=== PATIENT | male | born 1940 | race Caucasian/White ===

== ENCOUNTER 2022-07-15 15:34 | Observation (INO) | payer MEDICARE ==
[2022-07-15] MEDS ORDERED: IPRATROPIUM-ALBUTEROL 3 ML NEB INHALATION STA (16:24)
[2022-07-15] MEDS ORDERED: SODIUM CHLORIDE 0.9% 1,000 ML IV STA (16:24)
[2022-07-15] MEDS ORDERED: methylPREDNISolone SOD SUCCI 125 MG/2 ML VIAL IV STA (16:24)
[2022-07-15] MEDS ORDERED: ASPIRIN 81 MG PO STA (16:29)
[2022-07-15 16:55] LABS: Anisocytosis Slight; HGB 7.3 gm/dL (13.0-17.5); Hyperchromasia Marked; Hypochromasia Slight; MCH 32.6 pg (25.0-35.0); MCHC 37.2 g/dL (31.0-37.0); MCV 87.5 fL (80.0-100.0); Mean Platelet Volume 10.3; Platelet Count 152 k/uL (150-450); Poikilocytosis Marked; RBC 2.24 m/uL (4.30-5.90); RDW 19.8 % (11.5-15.5); WBC 4.5 k/uL (3.8-10.6)
[2022-07-15 17:06] LABS: HCT 19.6 % (39.0-53.0); Partial Thromboplastin Time 27.6 sec (22.0-30.0); Prothrombin Time 11.2 sec (9.0-12.0)
[2022-07-15 17:11] LABS: Calcium 8.5 mg/dL (8.4-10.2); Magnesium 2.3 mg/dL (1.6-2.3); Potassium 4.1 mmol/L (3.5-5.1); Total Bilirubin 5.7 mg/dL (0.2-1.3); Total Protein 6.9 g/dL (6.3-8.2)
[2022-07-15 17:29] LABS: Band Neutrophils % 6 %; Basophils # (M) 0.09 k/uL (0-0.2); Eosinophils # (M) 0.05 k/uL (0-0.7); Lymphocytes # (M) 1.04 k/uL (1.0-4.8); Monocytes # (M) 0.14 k/uL (0-1.0); Neutrophils % (M) 65 %; Nucleated Red Blood Cells 0 /100 WBC (0-0); Total Cells Counted 100
[2022-07-15 17:30] LABS: Large Platelets Present; Polychromasia Present
--- NOTE | 2022-07-15 17:39 | XR ---
EXAMINATION TYPE: XR chest 2V DATE OF EXAM: 07/15/2022 COMPARISON: NONE HISTORY: Short of breath TECHNIQUE: 3 views FINDINGS: Heart is normal. Lungs are clear of infiltrate. No heart failure. There is some coarsening of interstitial markings in the lower lung jiménez. There are chest leads. Bony thorax is intact. IMPRESSION: No active cardiopulmonary disease. Normal heart
--- NOTE | 2022-07-15 18:59 | CT ---
EXAMINATION TYPE: CT chest angio for PE DATE OF EXAM: 07/15/2022 COMPARISON: None HISTORY: elevated dimer, BROCK CT DLP: 276.1 mGycm Automated exposure control for dose reduction was used. CONTRAST: Performed with IV Contrast, patient injected with 80ML mL of Isovue 370. Images obtained from the thoracic inlet to the diaphragm with the IV contrast. There are Three-D post processed images. There is diffuse pulmonary emphysema. There is some mild reticular interstitial infiltrate throughout both lungs. Heart size is normal. No pericardial effusion. There are no hilar masses. There is no me diastinal adenopathy. Thoracic aorta shows mild atheromatous changes. No aneurysm or dissection. No evidence of filling defect in the pulmonary arteries. The thoracic spine is intact. No compression fracture. Sternum is intact. The upper abdominal soft ti ssues are intact. There are calcified gallstones. IMPRESSION: No evidence of pulmonary embolism. Emphysema and pulmonary interstitial fibrosis. Cholelithiasis. Splenomegaly. Spleen measures 15 cm.
[2022-07-15] MEDS ORDERED: IPRATROPIUM-ALBUTEROL 3 ML NEB INHALATION PRN (19:04)
[2022-07-15] MEDS ORDERED: NALOXONE 0.4 MG/ML 1 ML VIAL IV PRN (19:30)
--- NOTE | 2022-07-15 19:30 | ED ---
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 States he has noticed it worse over the last 4 days or so. Wanted to be evaluated. Denies any chest pain, history of blood clots. Denies any abdominal pain, nausea, vomiting. Denies any worsening weakness. States he does get exertional shortness of breath. States he quit smoking tobacco 5 days ago. Presents for further evaluation at this time. Denies any lower extremity edema. Denies any recent long distance travel. Is not on blood thinners. Does not take any medications at home. Denies alcohol use. Presents for further evaluation of this time.he also endorses one or 2 episodes of diarrhea. Nonbloody. Light brown in color. - Related Data Home Medications Medication Instructions Recorded Confirmed No Known Home Medications 07/15/22 07/15/22 Allergies Allergy/AdvReac Type Severity Reaction Status Date / Time Penicillins Allergy Rash/Hives Verified 07/15/22 18:14 Review of Systems ROS Statement: Those systems with pertinent positive or pertinent negative responses have been documented in the HPI. Review of Systems: CONST: Denies fever EYES: Denies blurry vision ENT: Denies nasal congestion C/V: Denies Chest pain RESP: Endorses shortness of breath. GI: Denies abdominal pain : Denies dysuria SKIN: Denies rash. MSK: Denies joint pain. NEURO: Denies headache ROS Other: All systems not noted in ROS Statement are negative. Past Medical History Past Medical History: No Reported History History of Any Multi-Drug Resistant Organisms: Unobtainable Past Surgical History: No Surgical Hx Reported Past Psychological History: No Psychological Hx Reported Smoking Status: Former smoker Past Alcohol Use History: Unable to Obtain Past Drug Use History: Unable to Obtain General Exam - General Exam Comments Initial Comments: General: Appears in no acute distress. HEAD: Normal with no signs of head trauma. EYES: PERRLA, EOMI, conjunctiva normal, no discharge. ENT: Hearing grossly intact, normal oropharynx. RESPIRATORY: Bilateral end expiratory wheezing. No increased work of breathing. Mild hypoxia on room air. C/V: Regular rate and rhythm. S1 and S2 auscultated, no edema, peripheral pulses 2+ and intact throughout ABD: Abd is soft, nontender, nondistended EXT: Normal range of motion, no obvious deformity SKIN: No rashes or lesions observed on exposed skin. NEURO: Alert and oriented 4. No focal deficits. Limitations: no limitations Course Vital Signs 07/15/22 07/15/22 07/15/22 15:42 17:41 17:53 Temperature 99.2 F Pulse Rate 93 82 84 Respiratory 22 Rate Blood Pressure 158/64 O2 Sat by Pulse 96 Oximetry 07/15/22 19:15 Temperature 98.8 F Pulse Rate 82 Respiratory 16 Rate Blood Pressure 141/59 O2 Sat by Pulse 89 L Oximetry Medical Decision Making - Medical Decision Making Based on the patient's presentation and physical exam, I'm concerned for possib le cardiopulmonary etiology for his current symptoms. I did recommend that we obtain cardiac labs. Screening d-dimer will be obtained. He was in agreement this plan. It appears he is having a COPD exacerbation will be given IV steroids as well as duonebs. He was in agreement this plan. Vital signs are within acceptable limits except for mild hypoxia. EKG shows no signs of acute ischemia. Chest x-ray as interpreted by myself reveals no evidence of infiltrate, acute bony trauma to process, pneumothorax. No acute cardiopulmonary process. Laboratory studies are remarkable for an anemia with hemoglobin of 7.3. I did discuss this with the patient and he states he is chronically anemic. D-dimer is elevated to 3.13. Troponin is indeterminate. Patient does have a chronically elevated total bilirubin according to the patient. Covid influenza negative. Liver function is within acceptable limits. I did update the patient. Because he has the elevated d-dimer I did want to obtain a CT PE. He was in agreement this plan. CT PE is interpreted by myself reveals no evidence of acute pulmonary embolism. No infiltrate. No bony traumatic process. Radiology did read it as showing emphysematous changes which does fit his current picture of COPD exacerbation. On reevaluation, patient is feeling somewhat improved following breathing treatment. I would like to admit him for further breathing treatments as he is requiring low levels of nasal cannula oxygen. He was in agreement this plan. We'll continue IV steroids as well as breathing treatments. I spoke with the admitting physician, Dr. Joyce who accepted the patient. Patient was admitted in stable condition for COPD exacerbation. - Lab Data Result diagrams: 07/15/22 16:36 07/15/22 16:36 Lab Results 07/15/22 07/15/22 07/15/22 Range/Units 16:36 16:36 16:36 WBC 4.5 (3.8-10.6) k/uL RBC 2.24 L (4.30-5.90) m/uL Hgb 7.3 L (13.0-17.5) gm/dL Hct 19.6 L* (39.0-53.0) % MCV 87.5 (80.0-100.0) fL MCH 32.6 (25.0-35.0) pg MCHC 37.2 H (31.0-37.0) g/dL RDW 19.8 H (11.5-15.5) % Plt Count 152 (150-450) k/uL MPV 10.3 Neutrophils % (Manual) 65 % Band Neuts % (Manual) 6 % Lymphocytes % (Manual) 23 % Monocytes % (Manual) 3 % Eosinophils % (Manual) 1 % Basophils % (Manual) 2 % Neutrophils # (Manual) 3.10 (1.3-7.7) k/uL Lymphocytes # (Manual) 1.04 (1.0-4.8) k/uL Monocytes # (Manual) 0.14 (0-1.0) k/uL Eosinophils # (Manual) 0.05 (0-0.7) k/uL Basophils # (Manual) 0.09 (0-0.2) k/uL Nucleated RBCs 0 (0-0) /100 WBC Manual Slide Review Performed Large Platelets Present Polychromasia Present Hypochromasia Slight Hyperchromasia Marked Poikilocytosis Marked Anisocytosis Slight PT 11.2 (9.0-12.0) sec INR 1.0 (<1.2) APTT 27.6 (22.0-30.0) sec D-Dimer (<0.60) mg/L FEU Sodium 134 L (137-145) mmol/L Potassium 4.1 (3.5-5.1) mmol/L Chloride 104 (98-107) mmol/L Carbon Dioxide 24 (22-30) mmol/L Anion Gap 6 mmol/L BUN 25 H (9-20) mg/dL Creatinine 1.10 (0.66-1.25) mg/dL Est GFR (CKD-EPI)AfAm 74 (>60 ml/min/1.73 sqM) Est GFR (CKD-EPI)NonAf 64 (>60 ml/min/1.73 sqM) Glucose 101 H (74-99) mg/dL Calcium 8.5 (8.4-10.2) mg/dL Magnesium 2.3 (1.6-2.3) mg/dL Total Bilirubin 5.7 H (0.2-1.3) mg/dL AST 34 (17-59) U/L ALT 23 (4-49) U/L Alkaline Phosphatase 83 (38-126) U/L Troponin I (0.000-0.034) ng/mL Total Protein 6.9 (6.3-8.2) g/dL Albumin 4.0 (3.5-5.0) g/dL Coronavirus (PCR) (Not Detectd) Influenza Type A RNA (Not Detectd) Influenza Type B (PCR) (Not Detectd) 07/15/22 07/15/22 07/15/22 Range/Units 16:36 16:36 16:36 WBC (3.8-10.6) k/uL RBC (4.30-5.90) m/uL Hgb (13.0-17.5) gm/dL Hct (39.0-53.0) % MCV (80.0-100.0) fL MCH (25.0-35.0) pg MCHC (31.0-37.0) g/dL RDW (11.5-15.5) % Plt Count (150-450) k/uL MPV Neutrophils % (Manual) % Band Neuts % (Manual) % Lymphocytes % (Manual) % Monocytes % (Manual) % Eosinophils % (Manual) % Basophils % (Manual) % Neutrophils # (Manual) (1.3-7.7) k/uL Lymphocytes # (Manual) (1.0-4.8) k/uL Monocytes # (Manual) (0-1.0) k/uL Eosinophils # (Manual) (0-0.7) k/uL Basophils # (Manual) (0-0.2) k/uL Nucleated RBCs (0-0) /100 WBC Manual Slide Review Large Platelets Polychromasia Hypochromasia Hyperchromasia Poikilocytosis Anisocytosis PT (9.0-12.0) sec INR (<1.2) APTT (22.0-30.0) sec D-Dimer (<0.60) mg/L FEU Sodium (137-145) mmol/L Potassium (3.5-5.1) mmol/L Chloride (98-107) mmol/L Carbon Dioxide (22-30) mmol/L Anion Gap mmol/L BUN (9-20) mg/dL Creatinine (0.66-1.25) mg/dL Est GFR (CKD-EPI)AfAm (>60 ml/min/1.73 sqM) Est GFR (CKD-EPI)NonAf (>60 ml/min/1.73 sqM) Glucose (74-99) mg/dL Calcium (8.4-10.2) mg/dL Magnesium (1.6-2.3) mg/dL Total Bilirubin (0.2-1.3) mg/dL AST (17-59) U/L ALT (4-49) U/L Alkaline Phosphatase (38-126) U/L Troponin I 0.018 (0.000-0.034) ng/mL Total Protein (6.3-8.2) g/dL Albumin (3.5-5.0) g/dL Coronavirus (PCR) Not Detected (Not Detectd) Influenza Type A RNA Not Detected (Not Detectd) Influenza Type B (PCR) Not Detected (Not Detectd) 07/15/22 Range/Units 16:36 WBC (3.8-10.6) k/uL RBC (4.30-5.90) m/uL Hgb (13.0-17.5) gm/dL Hct (39.0-53.0) % MCV (80.0-100.0) fL MCH (25.0-35.0) pg MCHC (31.0-37.0) g/dL RDW (11.5-15.5) % Plt Count (150-450) k/uL MPV Neutrophils % (Manual) % Band Neuts % (Manual) % Lymphocytes % (Manual) % Monocytes % (Manual) % Eosinophils % (Manual) % Basophils % (Manual) % Neutrophils # (Manual) (1.3-7.7) k/uL Lymphocytes # (Manual) (1.0-4.8) k/uL Monocytes # (Manual) (0-1.0) k/uL Eosinophils # (Manual) (0-0.7) k/uL Basophils # (Manual) (0-0.2) k/uL Nucleated RBCs (0-0) /100 WBC Manual Slide Review Large Platelets Polychromasia Hypochromasia Hyperchromasia Poikilocytosis Anisocytosis PT (9.0-12.0) sec INR (<1.2) APTT (22.0-30.0) sec D-Dimer 3.13 H (<0.60) mg/L FEU Sodium (137-145) mmol/L Potassium (3.5-5.1) mmol/L Chloride (98-107) mmol/L Carbon Dioxide (22-30) mmol/L Anion Gap mmol/L BUN (9-20) mg/dL Creatinine (0.66-1.25) mg/dL Est GFR (CKD-EPI)AfAm (>60 ml/min/1.73 sqM) Est GFR (CKD-EPI)NonAf (>60 ml/min/1.73 sqM) Glucose (74-99) mg/dL Calcium (8.4-10.2) mg/dL Magnesium (1.6-2.3) mg/dL Total Bilirubin (0.2-1.3) mg/dL AST (17-59) U/L ALT (4-49) U/L Alkaline Phosphatase (38-126) U/L Troponin I (0.000-0.034) ng/mL Total Protein (6.3-8.2) g/dL Albumin (3.5-5.0) g/dL Coronavirus (PCR) (Not Detectd) Influenza Type A RNA (Not Detectd) Influenza Type B (PCR) (Not Detectd) - EKG Data -: EKG Interpreted by Me EKG Comments: 12-lead Electrocardiogram Interpretation Note EKG was reviewed and interpreted by myself. 12-lead ECG performed at 1649 is interpreted by me as revealing normal sinus rhythm at a rate of 84 beats per minute. [place] is normal. MT interval is 150 ms, QRS duration is 88 ms, QTc is 410 ms.. There were no ST or T wave abnormalities to suggest myocardial ischemia or injury. R wave progression across the precordium was satisfactory. By my interpretation this EKG is non-diagnostic for acute ischemia. No prior EKG for comparison. Disposition Clinical Impression: COPD exacerbation, Jaundice, Chronic anemia Disposition: ADMITTED IP TO THIS HOSP Condition: Stable Referrals: None,Stated [Primary Care Provider] - 1-2 days Time of Disposition: 19:20
[2022-07-15] MEDS: methylPREDNISolone SOD SUCCI 40 MG/ML 1 ML VIAL IV SCH (23:06)
--- NOTE | 2022-07-15 23:20 | P.HPIM ---
History of Present Illness H&P Date: 07/15/22 The patient is a 81-year-old male with a PMH of COPD, Gilbert's syndrome, chronic anemia, and tobacco abuse who presents to the emergency room with complaints of dyspnea on exertion. The patient reports that he has been unable to perform his ADLs due to worsening dyspnea over the past 3-4 days. Denies experiencing chest discomfort, lower extremity swelling, lower extremity pain. Reports a lifelong history of smoking several packs a day which he quit 5 days ago. Reports feeling somewhat better at the time of interview. Denies fever, chills, nausea, vomiting, abdominal pain. In the emergency room, the patient had an SpO2 of 89% on room air. Chest CTA was consistent with emphysema with pulmonary interstitial fibrosis as well as splenomegaly and cholelithiasis with no PE. EKG revealed sinus rhythm at [address]/T-wave changes noted as reviewed by me. Laboratory evaluation was remarkable for hemoglobin 7.3, and troponin 0.018. Review of systems: Pertinent positives and negatives as discussed in HPI, a complete review of systems was performed and all other systems are negative. Physical examination: General: non toxic, no distress, appears at stated age, thin Derm: no unusual rashes/lesions, warm Head: atraumatic, normocephalic, symmetric Eyes: EOMI, no lid lag, anicteric sclera, pupils equal round reactive to light ENT: Nose and ears atraumatic Neck: No cervical lymphadenopathy, trachea midline, supple Mouth: no lip lesion, mucus membranes moist Cardiovascular: S1S2 reg, no murmur, positive dorsalis pedis pulse bilateral, no edema Lungs: Increased AP diameter, poor air entry bilaterally, no rhonchi or rales appreciated, no accessory muscle use Abdominal: soft, nontender to palpation, no guarding Ext: muscle strength 5 out of 5 in all 4 extremities grossly, no gross muscle atrophy, no contractures, Neuro: CN II-XI grossly intact, no gross focal neuro deficits Psych: Alert, oriented, appropriate affect Assessment/plan Acute COPD exacerbation -Solu-Medrol, Jordan's -Pulmonary consult -Supplemental oxygen -Strongly advised patient on importance of tobacco cessation Normocytic anemia, unknown baseline -Patient reports that he has been told over the past several years that he has anemia -Denies seeing a director enterprise systems for this -Obtain basic anemia workup DVT prophylaxis -Heparin subcu The patient is admitted with an anticipated less than 2 midnight stay for evaluation of COPD CODE STATUS: Full Code Discussed with: Patient Anticipated discharge date: in am Anticipated discharge place: Home Past Medical History Past Medical History: No Reported History History of Any Multi-Drug Resistant Organisms: Unobtainable Past Surgical History: No Surgical Hx Reported Past Psychological History: No Psychological Hx Reported Smoking Status: Former smoker Past Alcohol Use History: Unable to Obtain Past Drug Use History: Unable to Obtain - Past Family History Father Family Medical History: COPD Medications and Allergies Home Medications Medication Instructions Recorded Confirmed Type No Known Home Medications 07/15/22 07/15/22 History Allergies Allergy/AdvReac Type Severity Reaction Status Date / Time Penicillins Allergy Rash/Hives Verified 07/15/22 18:14 Physical Exam Vitals: Vital Signs Temp Pulse Resp BP Pulse Ox 07/15/22 20:00 98.6 F 85 16 143/114 91 L 07/15/22 19:15 98.8 F 82 16 141/59 89 L 07/15/22 17:53 84 07/15/22 17:41 82 07/15/22 15:42 99.2 F 93 22 158/64 96 Intake and Output 07/15/22 07/15/22 07/15/22 06:59 14:59 22:59 Other: Weight 56.699 kg Results CBC & Chem 7: 07/15/22 16:36 07/15/22 16:36 Labs: Abnormal Lab Results - Last 24 Hours (Table) 07/15/22 07/15/22 07/15/22 Range/Units 16:36 16:36 16:36 RBC 2.24 L (4.30-5.90) m/uL Hgb 7.3 L (13.0-17.5) gm/dL Hct 19.6 L* (39.0-53.0) % MCHC 37.2 H (31.0-37.0) g/dL RDW 19.8 H (11.5-15.5) % D-Dimer 3.13 H (<0.60) mg/L FEU Sodium 134 L (137-145) mmol/L BUN 25 H (9-20) mg/dL Glucose 101 H (74-99) mg/dL Total Bilirubin 5.7 H (0.2-1.3) mg/dL
[2022-07-16 00:26] LABS: Glucose,Whole Blood 170 mg/dL (70-110)
[2022-07-16] MEDS: HEPARIN SODIUM,PORCINE/PF 5,000 UNIT/0.5 ML SYRINGE SQ SCH ×3 (06:12→16:00)
[2022-07-16] MEDS: IPRATROPIUM-ALBUTEROL 3 ML NEB INHALATION SCH ×4 (07:36→20:04)
[2022-07-16] MEDS: methylPREDNISolone SOD SUCCI 40 MG/ML 1 ML VIAL IV SCH ×2 (08:35→20:38)
[2022-07-16 12:58] LABS: % Iron Saturation 50.45 (15.00-50.00)
[2022-07-16 13:06] LABS: African American GFR (CKD) 93.8 (60.0-200.0); Anion Gap 9.5 mmol/L (10.00-18.00); BUN/Creat Ratio 30.89 Ratio (12.00-20.00); Blood Urea Nitrogen 27.8 mg/dL (9.0-27.0); Calcium 8.5 mg/dL (8.7-10.3); Carbon Dioxide 22.5 mmol/L (20.0-27.5); Non-African American GFR(CKD) 80.9 (60.0-200.0); Potassium 4.6 mmol/L (3.5-5.5)
--- NOTE | 2022-07-16 13:49 | P.PN ---
Subjective Progress Note Date: 07/16/22 The patient is a 81-year-old male with COPD, Gilbert's syndrome, chronic anemia, and tobacco abuse who presented to the emergency room with complaints of dyspnea on exertion. In the emergency room, the patient had an SpO2 of 89% on room air. Chest CTA was consistent with emphysema with pulmonary interstitial fibrosis as well as splenomegaly and cholelithiasis with no PE. EKG revealed sinus rhythm at [address]/T-wave changes noted as reviewed by me. Laboratory evaluation was remarkable for hemoglobin 7.3, and troponin 0.018. He was started on bronchodilators and steroids. He was placed in observation for further monitoring. On the morning following admission to his breathing had improved significantly. However his home O2 testing revealed an SpO2 of 86% with ambulation. Patient seen and examined at bedside. His breathing is significantly improved. He reports a lifelong history of anemia. I discussed with him that he should follow closely with his outpatient physician for this. He is in agreement. He states is mostly on bronchodilators and antihypertensive medications that he has not been following up on a regular basis. He also states that his bronchodilators were too expensive to afford. General: nontoxic, no distress, appears at stated age, poor dentition Derm: warm, dry Head: atraumatic, normocephalic, symmetric Eyes: EOMI, no lid lag, anicteric sclera Mouth: no lip lesion, mucus membranes moist Cardiovascular: S1S2 reg, no murmur, positive posterior tibial pulse bilateral, Lungs: Decreased breath sounds bilateral, no rhonchi, no rales , no accessory muscle use Abdominal: soft, nontender to palpation, no guarding, no appreciable organomegaly Ext: no gross muscle atrophy, no edema, no contractures Neuro: CN II-XI grossly intact, no focal neuro deficits Psych: Alert, oriented, appropriate affect Assessment/plan: Acute exacerbation of COPD Acute hypoxic respiratory failure -Bronchodilators, steroids -Pulmonary hygiene Tobacco dependency -Cessation -Nicotine replacement Anemia of chronic disease -Patient reports a history of this lifelong. He denies any blood in his stool, blood in his urine, coughing up blood coming bloody noses -Await folic acid -Needs close outpatient follow-up Likely home in AM once home O2 can be arranged Objective - Vital Signs Vital signs: Vital Signs Temp 97.5 F L 07/16/22 07:00 Pulse 92 07/16/22 07:52 Resp 18 07/16/22 08:00 BP 149/72 07/16/22 07:00 Pulse Ox 100 07/16/22 07:00 FiO2 Intake & Output 07/15/22 07/16/22 07/16/22 18:59 06:59 18:59 Intake Total 118 Balance 118 Weight 56.699 kg 56.699 kg Intake: Oral 118 Other: Voiding Method Toilet # Voids 2 - Labs CBC & Chem 7: 07/15/22 16:36 07/16/22 07:10 Labs: Abnormal Lab Results - Last 24 Hours (Table) 07/15/22 07/15/22 07/15/22 Range/Units 16:36 16:36 16:36 RBC 2.24 L (4.30-5.90) m/uL Hgb 7.3 L (13.0-17.5) gm/dL Hct 19.6 L* (39.0-53.0) % MCHC 37.2 H (31.0-37.0) g/dL RDW 19.8 H (11.5-15.5) % D-Dimer 3.13 H (<0.60) mg/L FEU Sodium 134 L (137-145) mmol/L Anion Gap (10.00-18.00) mmol/L BUN 25 H (9-20) mg/dL BUN/Creatinine Ratio (12.00-20.00) Ratio Glucose 101 H (74-99) mg/dL POC Glucose (mg/dL) (70-110) mg/dL Calcium (8.7-10.3) mg/dL TIBC (228-460) ug/dL % Saturation (15.00-50.00) Transferrin (204.0-354.0) mg/dL Ferritin (22.0-322.0) ng/mL Total Bilirubin 5.7 H (0.2-1.3) mg/dL 07/16/22 07/16/22 Range/Units 00:25 07:10 RBC (4.30-5.90) m/uL Hgb (13.0-17.5) gm/dL Hct (39.0-53.0) % MCHC (31.0-37.0) g/dL RDW (11.5-15.5) % D-Dimer (<0.60) mg/L FEU Sodium (137-145) mmol/L Anion Gap 9.50 L (10.00-18.00) mmol/L BUN 27.8 H (9-20) mg/dL BUN/Creatinine Ratio 30.89 H (12.00-20.00) Ratio Glucose 152 H (74-99) mg/dL POC Glucose (mg/dL) 170 H (70-110) mg/dL Calcium 8.5 L (8.7-10.3) mg/dL TIBC 176 L (228-460) ug/dL % Saturation 50.45 H (15.00-50.00) Transferrin 126.0 L (204.0-354.0) mg/dL Ferritin 836.0 H (22.0-322.0) ng/mL Total Bilirubin (0.2-1.3) mg/dL
[2022-07-16 20:05] LABS: Anisocytosis Moderate; HCT 22.3 % (39.0-53.0); HGB 7.2 gm/dL (13.0-17.5); Hyperchromasia Slight; Hypochromasia Marked; MCHC 32.5 g/dL (31.0-37.0); MCV 92.3 fL (80.0-100.0); Macrocytosis Slight; Mean Platelet Volume 10.6; Platelet Count 178 k/uL (150-450); Poikilocytosis Marked; RBC 2.41 m/uL (4.30-5.90); RDW 21.1 % (11.5-15.5)
[2022-07-16 20:52] LABS: Band Neutrophils % 10 %; Lymphocytes # (M) 0.85 k/uL (1.0-4.8); Metamyelocytes # (M) 0.04 k/uL (0); Metamyelocytes % 1 %; Monocytes # (M) 0.19 k/uL (0-1.0); Neutrophils % (M) 63 %; Nucleated Red Blood Cells 2 /100 WBC (0-0); Total Cells Counted 200; WBC 3.7 k/uL (3.8-10.6)
[2022-07-16 20:53] LABS: Polychromasia Present
[2022-07-16 20:59] LABS: Large Platelets Present
[2022-07-17] MEDS: HEPARIN SODIUM,PORCINE/PF 5,000 UNIT/0.5 ML SYRINGE SQ SCH ×2 (00:09→08:53)
[2022-07-17 03:14] VITALS: TEMP 97.7
[2022-07-17] MEDS: IPRATROPIUM-ALBUTEROL 3 ML NEB INHALATION SCH ×2 (07:22→10:51)
[2022-07-17 07:31] VITALS: BP 134/71; RESP 17
[2022-07-17] MEDS: methylPREDNISolone SOD SUCCI 40 MG/ML 1 ML VIAL IV SCH (08:53)
[2022-07-17 11:03] VITALS: PULSE 82
--- NOTE | 2022-07-17 13:35 | P.DS ---
Providers Date of admission: 07/15/22 19:30 Expected date of discharge: 07/17/22 Attending physician: Manuelito Joyce MD Primary care physician: Stated None Hospital Course: Discharge Diagnosis: Acute exacerbation of COPD Acute hypoxic respiratory failure, now chronic hypoxic respiratory failure Tobacco dependency Anemia of chronic disease Hospital Course: The patient is a 81-year-old male with COPD, Gilbert's syndrome, chronic anemia, and tobacco abuse who presented to the emergency room with complaints of dyspnea on exertion. In the emergency room, the patient had an SpO2 of 89% on room air. Chest CTA was consistent with emphysema with pulmonary interstitial fibrosis as well as splenomegaly and cholelithiasis with no PE. EKG revealed sinus rhythm at [address]/T-wave changes noted as reviewed by me. Laboratory evaluation was remarkable for hemoglobin 7.3, and troponin 0.018. He was started on bronchodilators and steroids. He was placed in observation for further monitoring. On the morning following admission to his breathing had improved significantly. However his home O2 testing revealed an SpO2 of 86% with ambulation. Follow-up: New provider at Elisabet Nair's office. Take meds as prescribed, Home O2. Patient seen and examined at bedside. He states that his breathing is much better. Feeling better. Wants to be discharged home. We discussed that he will need home oxygen. We also discussed the importance of filling his medications. Vital signs reviewed and stable. General: nontoxic, no distress, appears younger than stated age Derm: warm, dry Head: atraumatic, normocephalic, symmetric Eyes: EOMI, no lid lag, anicteric sclera Mouth: no lip lesion, mucus membranes moist Cardiovascular: S1S2 reg, no murmur, positive posterior tibial pulse bilateral, Lungs: CTA bilateral, no rhonchi, no rales , no accessory muscle use Abdominal: soft, nontender to palpation, no guarding, no appreciable organomegaly Ext: no gross muscle atrophy, no edema, no contractures Neuro: CN II-XI grossly intact, no focal neuro deficits Psych: Alert, oriented, appropriate affect A total of 27 minutes of time were spent preparing this complex discharge summary. Patient was discharged on 07/20/22. Patient Condition at Discharge: Stable Plan - Discharge Summary New Discharge Prescriptions: New Fluticasone Propion/Salmeterol [Advair 250-50 Diskus] 1 inhalation PO BID #1 each Albuterol Sulfate [Albuterol Sulfate Hfa] 1 puff PO Q4-6H PRN #8.5 gm PRN Reason: Shortness Of Breath predniSONE 50 mg PO DAILY #4 tab Discharge Medication List Albuterol Sulfate [Albuterol Sulfate Hfa] 1 puff PO Q4-6H PRN #8.5 gm 07/17/22 [Rx] Fluticasone Propion/Salmeterol [Advair 250-50 Diskus] 1 inhalation PO BID #1 each 07/17/22 [Rx] predniSONE 50 mg PO DAILY #4 tab 07/17/22 [Rx] Follow up Appointment(s)/Referral(s): [facility] Patient Instructions/Handouts: COPD (Chronic Obstructive Pulmonary Disease) (DC) Activity/Diet/Wound Care/Special Instructions: Activity: as tolerated Diet: regular Special Instructions: Essentially follow up with whoever took over for Nadege Nair's practice. You need follow-up for your anemia (low blood count) and COPD. Abstain from smoking Discharge Disposition: HOME SELF-CARE
== END 2022-07-17 13:23 | disposition home or self-care (01) ==
LOC: EC 15:34 → 6NMEDSUR 19:30
PROVIDERS: ADMIT Internal Medicine; ATTEND Internal Medicine
DX: J44.1 Chronic obstructive pulmonary disease with (acute) exacerbation (principal); J96.21 Acute and chronic respiratory failure with hypoxia; D63.8 Anemia in other chronic diseases classified elsewhere; R79.9 Abnormal finding of blood chemistry, unspecified; F17.200 Nicotine dependence, unspecified, uncomplicated; E80.4 Gilbert syndrome; J84.10 Pulmonary fibrosis, unspecified; R16.1 Splenomegaly, not elsewhere classified; K80.20 Calculus of gallbladder without cholecystitis without obstruction; Z20.822 Contact with and (suspected) exposure to COVID-19; Z82.5 Family history of asthma and other chronic lower respiratory diseases; Z88.0 Allergy status to penicillin
CPT/HCPCS: 96376 ×3; 96372 ×2; 96361; 96374; 99285; 36415; 94640 ×4; 93005; 85379; 80053; 80048; 82607; 82728; 83540; 83550; 83735; 84484; 85025 ×2; 85610; 85730; 87502; 87635; 71046; 71275; G0378 ×3; J2920 ×3; J2930; Q9967; J1644 ×2; 82747

== ENCOUNTER 2024-04-30 12:33 | Emergency (ER) | payer MEDICARE ==
[2024-04-30 12:37] VITALS: TEMP 98.5
[2024-04-30 12:54] VITALS: RESP 16
--- NOTE | 2024-04-30 13:01 | XR ---
EXAMINATION TYPE: XR chest 2V DATE OF EXAM: 04/30/2024 COMPARISON: 07/15/2022 HISTORY: Cough TECHNIQUE: Frontal and lateral views of the chest are obtained. FINDINGS: There is a subtle area of partially consolidative and interstitial density in the right lower lobe wh ich could represent a pneumonic infiltrate. Short-term follow-up to resolution is recommended. Left lung is clear. There is no pleural effusion or pneumothorax. Heart and pulmonary vasculature are normal. The osseous structures are intact. IMPRESSION: Right lower lobe infiltrate indicating a possible pneumonia. Short-term follow-up is recommended.
--- NOTE | 2024-04-30 13:12 | ED ---
General Adult HPI - General Chief complaint: Shortness of Breath Stated complaint: SOB/trouble swallowing Time Seen by Provider: 04/30/24 12:38 Source: patient, RN notes reviewed, old records reviewed Mode of arrival: ambulatory Limitations: no limitations - History of Present Illness Initial comments: 83-year-old male history of COPD, current smoker presents for evaluation of chronic cough which she states is productive of thick white sputum. Patient states that at times the sputum is so thick that he has trouble coughing this up. This has been an ongoing issue for approximately 1 year. No fever. No chest pain. No lower extremity pain or swelling. Patient states he was told by his primary care provider to quit smoking 1 year ago but that he continued and actually increased smoking after this time. - Related Data Previous Rx's Medication Instructions Recorded Albuterol Sulfate [Albuterol 1 puff PO Q4-6H PRN #8.5 gm 07/17/22 Sulfate Hfa] Fluticasone Propion/Salmeterol 1 inhalation PO BID #1 each 07/17/22 [Advair 250-50 Diskus] predniSONE 50 mg PO DAILY #4 tab 07/17/22 Albuterol Inhaler [Ventolin Hfa 1 - 2 puff INHALATION Q4HR PRN #1 04/30/24 Inhaler] each Doxycycline [Vibramycin] 100 mg PO BID 10 Days #20 capsule 04/30/24 predniSONE 50 mg PO DAILY #5 tab 04/30/24 Allergies Allergy/AdvReac Type Severity Reaction Status Date / Time Penicillins Allergy Rash/Hives Verified 04/30/24 12:37 Review of Systems ROS Statement: Those systems with pertinent positive or pertinent negative responses have been documented in the HPI. ROS Other: All systems not noted in ROS Statement are negative. Past Medical History Past Medical History: Coronary Artery Disease (CAD), COPD, Hypertension Additional Past Medical History / Comment(s): Appendicitis at 6yrs old. Pt states he was not aware he had COPD until today (07/15/22) History of Any Multi-Drug Resistant Organisms: Unobtainable Past Surgical History: No Surgical Hx Reported Additional Past Surgical History / Comment(s): TNS unit to back Past Psychological History: No Psychological Hx Reported Smoking Status: Current every day smoker Past Alcohol Use History: Unable to Obtain Past Drug Use History: Unable to Obtain - Past Family History Father Family Medical History: COPD General Exam Limitations: no limitations General appearance: alert, in no apparent distress Head exam: Present: atraumatic, normocephalic Eye exam: Present: normal appearance, PERRL ENT exam: Present: normal exam Neck exam: Present: normal inspection. Absent: tenderness, meningismus Respiratory exam: Present: rhonchi, decreased breath sounds. Absent: wheezes Cardiovascular Exam: Present: regular rate, normal rhythm GI/Abdominal exam: Present: soft. Absent: distended, tenderness, guarding Extremities exam: Present: normal inspection, normal capillary refill. Absent: pedal edema, calf tenderness Neurological exam: Present: alert, oriented X3 Psychiatric exam: Present: normal affect, normal mood Skin exam: Present: warm, dry, intact. Absent: cyanosis, diaphoretic Course Vital Signs 04/30/24 04/30/24 04/30/24 12:35 12:51 13:53 Temperature 98.5 F Pulse Rate 72 63 Respiratory 20 16 16 Rate Blood Pressure 176/75 183/87 O2 Sat by Pulse 99 100 Oximetry - Reevaluation(s) Reevaluation #1: 04/30/24 13:26 Evaluated, resting comfortably, eager for discharge Medical Decision Making - Medical Decision Making Was pt. sent in by a medical professional or institution (, PA, PASTOR, urgent care, hospital, or jail...) When possible be specific @ -No Did you speak to anyone other than the patient for history (EMS, parent, family, police, friend...)? What history was obtained from this source @ -No Did you review nursing and triage notes (agree or disagree)? Why? @ -I reviewed and agree with nursing and triage notes Were old charts reviewed (outside hosp., previous admission, EMS record, old EKG, old radiological studies, urgent care reports/EKG's, jail records)? Report findings @ -No old charts were reviewed Differential Dyspnea: Coronary syndrome, arrhythmia, tamponade, asthma, COPD, pulmonary embolism, pneumonia, pneumothorax, pulmonary effusion, anaphylaxis, diabetic ketoacidosis, flailed chest, pulmonary contusion, diaphragmatic rupture, anemia, neuromuscular, this is not meant to be an all-inclusive list. EKG interpreted by me (3pts min.). @ -As above X-rays interpreted by me (1pt min.). @ -Chest x-ray shows right lower lobe infiltrate, no pneumothorax CT interpreted by me (1pt min.). @ -None done U/S interpreted by me (1pt. min.). @ -None done What testing was considered but not performed or refused? (CT, X-rays, U/S, labs)? Why? @ -None What meds were considered but not given or refused? Why? @ -None Did you discuss the management of the patient with other professionals (professionals i.e. , PA, PASTOR, lab, RT, psych nurse, nephrology social worker, analysis reporting developer, teacher, digital controls technical officer, case managers)? Give summary @ -No Was smoking cessation discussed for >3mins.? @ -No Was critical care preformed (if so, how long)? @ -No Were there social determinants of health that impacted care today? How? (Homelessness, low income, unemployed, alcoholism, drug addiction, transporta tion, low edu. Level, literacy, decrease access to med. care, group home, rehab)? @ -No Was there de-escalation of care discussed even if they declined (Discuss DNR or withdrawal of care, Hospice)? DNR status @ -No What co-morbidities impacted this encounter? (DM, HTN, Smoking, COPD, CAD, Cancer, CVA, ARF, Chemo, Hep., AIDS, mental health diagnosis, sleep apnea, morbid obesity)? @ -[COPD, current smoker Was patient admitted / discharged? Hospital course, mention meds given and route, prescriptions, significant lab abnormalities, going to OR and other pertinent info. @ -83-year-old male presenting with chronic productive cough no fever. Patient is well-appearing with out without dyspnea or hypoxia. Chest x-ray shows a right lower lobe infiltrate. Patient will be covered with antibiotics as well as steroids. He will continue his albuterol. Patient will follow closely with his primary care provider and return to the emergency department if symptoms should worsen. Undiagnosed new problem with uncertain prognosis? @ -No Drug Therapy requiring intensive monitoring for toxicity (Heparin, Nitro, Insulin, Cardizem)? @ -No Were any procedures done? @ -No Diagnosis/symptom? @ -COPD, pneumonia Acute, or Chronic, or Acute on Chronic? @Acute on Chronic Uncomplicated (without systemic symptoms) or Complicated (systemic symptoms)? @ -Default Side effects of treatment? @ -No Exacerbation, Progression, or Severe Exacerbation? @ -No Poses a threat to life or bodily function? How? (Chest pain, [place], [place], pneumonia, PE, COPD, DKA, ARF, appy, cholecystitis, CVA, Diverticulitis, Homicidal, Suicidal, threat to staff... and all critical care pts) @ -Yes, pneumonia, COPD Disposition Clinical Impression: COPD exacerbation, Community acquired pneumonia Disposition: HOME SELF-CARE Condition: Fair Instructions (If sedation given, give patient instructions): COPD (Chronic Obstructive Pulmonary Disease) (ED), Bacterial Pneumonia (ED) Prescriptions: predniSONE 50 mg PO DAILY #5 tab Albuterol Inhaler [Ventolin Hfa Inhaler] 1 - 2 puff INHALATION Q4HR PRN #1 each PRN Reason: Shortness Of Breath Doxycycline [Vibramycin] 100 mg PO BID 10 Days #20 capsule Is patient prescribed a controlled substance at d/c from ED?: No Referrals: Ashutosh Crook MD [Primary Care Provider] - 1-2 days Time of Disposition: 13:11
[2024-04-30] MEDS: DOXYCYCLINE 100 MG CAP PO STA (13:27)
[2024-04-30] MEDS: predniSONE 50 MG TAB PO STA (13:47)
[2024-04-30 13:54] VITALS: BP 183/87; PULSE 63
== END 2024-04-30 13:54 | disposition home or self-care (01) ==
LOC: EC 12:33
DX: R06.02 Shortness of breath
CPT/HCPCS: 71046; 99284

== ENCOUNTER → 2024-11-14 | Outpatient (CLI) | payer MEDICARE ==
--- NOTE | 2024-11-14 18:12 | CT ---
EXAMINATION TYPE: CT chest wo con CT DLP: 198 mGycm, Automated exposure control for dose reduction was used. DATE OF EXAM: 11/14/2024 5:29 PM COMPARISON: CTA chest 07/15/2020 CLINICAL INDICATION:Male, 84 years old with history of R91.1 LUNG NODULE; PHH, SOB, nodules TECHNIQUE: Multiple axial images were obtained through the chest without IV contrast. Lack of IV or o ral contrast limits evaluation of solid and hollow organ viscera. . Coronal and sagittal reformats re viewed. FINDINGS: LUNGS/ PLEURA: Advanced bilateral upper lung centrilobular emphysematous changes. Right lower lobe de pendent subsegmental atelectasis. Peripheral right lower lobe subpleural stable 5 mm pulmonary nodule (series 4, image 45). Stable left mid lung 4 mm pulmonary nodule (series 4, image 34). Stable left l jannet base peripheral 1 cm nodular opacity (series 4, image 55). Stable nodular opacity within the ante rior right midlung measuring up to 1.5 cm (series 4, image 38). Few stable scattered pulmonary micron odules. These demonstrate callus or granulomas. Similar anterior right upper lobe subpleural reticula r changes. AIRWAY: Patent and unremarkable.. HEART: Size within normal limits.No pericardial effusion Mild coronary artery calcifications present. Annulus calcifications. MEDIASTINUM: No gross evidence of adenopathy. Calcified bilateral hilar granulomas. VASCULATURE: No aortic aneurysm. MUSCULOSKELETAL: Mild to moderate disc degeneration changes are present throughout the thoracolumbar spine. No acute osseous abnormality. SOFT TISSUES/LYMPH NODES: Minimal bilateral gynecomastia. LOWER NECK: No significant findings. UPPER ABDOMEN: Calcified granuloma within the spleen. Cholelithiasis. IMPRESSION: 1. Several stable pulmonary nodules dating back to 2021 and considered benign. No new or enlarging pu lmonary nodules. 2. Sequelae of prior granulomatous disease. 3. Advanced emphysematous changes. 4. Cholelithiasis. [facility], , 11/14/2024 6:10 PM
== END | disposition home or self-care (01) ==
LOC: RADCTMAIN 17:06
DX: J43.2 Centrilobular emphysema (principal); K80.20 Calculus of gallbladder without cholecystitis without obstruction; R91.8 Other nonspecific abnormal finding of lung field
CPT/HCPCS: 71250